=== PATIENT | female | born 1955 | race Caucasian/White ===

== ENCOUNTER → 2020-06-14 | Outpatient (CLI) | payer OTHER, SELFPAY | LOC: CT 05-18 10:30 | DX: C83.39 Diffuse large B-cell lymphoma, extranodal and solid organ sites (principal); D69.6 Thrombocytopenia, unspecified; R91.8 Other nonspecific abnormal finding of lung field; R59.0 Localized enlarged lymph nodes; R16.1 Splenomegaly, not elsewhere classified | CPT/HCPCS: 36415; 71260; 82565; Q9967 ==

== ENCOUNTER → 2021-04-25 | Outpatient (CLI) | payer OTHER ==
[~2021-04-25] MED LIST: BIOTIN PO; D3 DOTS50 MCG PO; VITAMIN A2400 MCG PO; ZINC50 M1 PO
[2021-04-25 10:58] LABS: HEMOGLOBIN 12.3 gm/dl (12.3-15.3); RED BLOOD COUNT 4.29 M/UL (4.00-5.10); WHITE BLOOD COUNT 3.4 K/UL (4.5-11.0)
== END ==
LOC: OPSV2 09:57
PROVIDERS: Obstetrics & Gynecology
DX: Z01.812 Encounter for preprocedural laboratory examination (principal); N81.9 Female genital prolapse, unspecified
CPT/HCPCS: 36415; 81001; 85025